=== PATIENT | female | born 1975 ===

== ENCOUNTER → 2024-10-12 | Outpatient (CLI) | payer BC ==
[2024-10-13 12:12] LABS: Stool Occult Bld Immuno 1 Negative (NEGATIVE)
== END ==
LOC: LAB SHORT 21:00 → LAB 21:00 → LAB SHORT 10-13 08:39
PROVIDERS: Internal Medicine
DX: Z12.11 Encounter for screening for malignant neoplasm of colon (principal)
CPT/HCPCS: G0328